=== PATIENT | female | born 1975 | race Caucasian/White ===

== ENCOUNTER 2021-12-10 05:35 | Emergency (ER) | payer MEDICAID ==
[~2021-12-10] VITALS: Ht 167.6 cm; Wt 94.8 kg
[2021-12-10 05:45] VITALS: BP_SYST 95
--- NOTE | 2021-12-10 05:50 | NUR ---
PT IS AA&OX4. AFEBRILE, NAD. VSS. PT HAS GENERALIZED BODY HIVES AND ITCHING. STATED SHE FEELS LIKE HAVING SOB. SAT 97% ON RA. PER PT SHE DOESN'T HAVE ANY ALLERGIES TO MEDS AND FOOD. PER PT, SHE'S CURRENTLY TAKING ACYCLOVIR JOSE SHE'S TAKEN IT IN THE PAST TOO. PER PT, SHE TOOK BENADRYL 25MG 2 HRS AGO.
[2021-12-10] MEDS ORDERED: DIPHENHYDRAMINE INJ 50 MG/ML VIAL IM ONE (06:00)
[2021-12-10] MEDS ORDERED: predniSONE 20 MG TABLET PO ONE (06:00)
[2021-12-10] MEDS ORDERED: TRIA80OI TP (06:16)
[2021-12-10] MEDS ORDERED: PRED20TA PO (06:16)
[2021-12-10] MEDS ORDERED: HYDR50TA61 PO (06:16)
--- NOTE | 2021-12-10 06:21 | NUR ---
Pt came to ER c/o body rash since saturday. pt states she thinks it could be from her home medication. pt has reddness all over bilateral arms, back, and stomach pt continues to scratch body. pt states she has been taking PO benadryl to calm hives down, but did not work denies SOB, denies tightness of throat. RN will continue to round on pt
--- NOTE | 2021-12-10 07:12 | NUR ---
gave report to PETER Ordaz endorsed pt in stable condition all questions answered
--- NOTE | 2021-12-10 07:20 | NUR ---
Patient given written and verbal discharge instructions and verbalizes understanding. ER Dr. Saqib MD discussed with patient the results and treatment provided. Patient in stable condition. ID arm band removed. IV catheter removed intact and dressing applied, no active bleeding. Rx of hydroxyzine, predinisone, triamcinolone given. Patient educated on pain management and to follow up with PMD. Pain Scale 0/10. Opportunity for questions provided and answered. Medication side effect fact sheet provided.
--- NOTE | 2021-12-10 07:20 | NUR ---
ER Dr. Saqib MD at bedside examining patient.
[2021-12-10 07:57] VITALS: BP_SYST 100
== END 2021-12-10 08:01 | disposition home or self-care (01) ==
LOC: SED 05:35
DX: R21 Rash and other nonspecific skin eruption (principal); Z79.899 Other long term (current) drug therapy
CPT/HCPCS: 99283; 96372; J7512; J1200

== ENCOUNTER 2021-12-12 08:58 | Emergency (ER) | payer MEDICAID ==
[~2021-12-12] VITALS: Ht 167.6 cm; Wt 95.3 kg
[~2021-12-12 08:58] MED LIST: HYDR50TA61 PO; PRED20TA PO; TRIA80OI TP
[2021-12-12 09:16] VITALS: BP_SYST 113
[2021-12-12 09:38] LABS: BASOPHILS # (AUTO) 0.1 K/uL (0.0-0.2); BASOPHILS % (AUTO) 0.6 % (0.0-2.0); EOSINOPHILS # (AUTO) 0.1 K/uL (0.0-0.4); EOSINOPHILS % (AUTO) 0.7 % (0.0-4.0); HEMATOCRIT 35.7 % (36-48); LYMPHOCYTES # (AUTO) 3.8 K/uL (1.0-5.5); LYMPHOCYTES % (AUTO) 34.4 % (20.5-51.5); MEAN CORPUSCULAR VOLUME 80 fL (79.0-98.0); MONOCYTES # (AUTO) 0.6 K/uL (0.0-1.0); MONOCYTES % (AUTO) 5.9 % (1.7-9.3); NEUTROPHILS # (AUTO) 6.4 K/uL (1.8-7.7); NEUTROPHILS % (AUTO) 58.4 % (40.0-70.0); PLATELET COUNT (AUTO) 323 K/uL (130-430); RED BLOOD CELL COUNT(AUTO) 4.45 MIL/uL (4.2-6.2); RED CELL DISTRIBUTION WIDTH 15.7 % (9.0-15.0); WHITE BLOOD COUNT (AUTO) 10.9 K/uL (4.8-10.8)
[2021-12-12 09:52] LABS: ANION GAP 6 (5-15); CALCIUM 8.2 mg/dL (8.4-11.0); CHLORIDE 106 mmol/L (98-107); GLUCOSE 95 mg/dL (70-99); POTASSIUM 3.4 mmol/L (3.5-5.1); UREA NITROGEN, BLOOD 10 mg/dL (8-21)
[2021-12-12 09:59] LABS: ALANINE AMINOTRANSFERASE 17 U/L (12-78); ALBUMIN 3.4 g/dL (3.4-4.8); ASPARTATE AMINOTRANSFERASE 16 U/L (10-37); TOTAL BILIRUBIN 0.3 mg/dL (0.0-1.0)
[2021-12-12 10:02] LABS: GFR AFRICAN AMERICAN 87 mL/min (>90)
[2021-12-12 10:07] LABS: PROTHROMBIN TIME 10.3 SECS (9.5-12.5)
[2021-12-12] MEDS ORDERED: iohexoL 350 mgI/mL, 100 ML INFUS..BTL IV ONE (11:15)
[2021-12-12] MEDS ORDERED: HYDR-3917 PO (12:41)
[2021-12-12] MEDS ORDERED: IBUP-1969 PO (12:41)
[2021-12-12 12:58] VITALS: BP_SYST 152
== END 2021-12-12 12:58 | disposition home or self-care (01) ==
LOC: SED 08:58
DX: 000.000 (principal); M54.6 Pain in thoracic spine; R00.2 Palpitations; Z79.899 Other long term (current) drug therapy
CPT/HCPCS: 80053; 85025; 85379; 85610; 85730; 84484; 36415; 93005; 71045; 71275; 76376; 99285; 81025; Q9967

== ENCOUNTER 2022-09-23 02:30 | Emergency (ER) | payer MEDICAID ==
[~2022-09-23] VITALS: Ht 167.6 cm; Wt 95.7 kg
[~2022-09-23 02:30] MED LIST changes: +HYDR-3917 PO; +IBUP-1969 PO
[2022-09-23 02:33] VITALS: BP_SYST 129; PULSE 65; RESP 20; TEMP 97.6; O2SAT 98
[2022-09-23 03:15] LABS: BASOPHILS # (AUTO) 0.1 K/uL (0.0-0.2); BASOPHILS % (AUTO) 1.3 % (0.0-2.0); EOSINOPHILS # (AUTO) 0.2 K/uL (0.0-0.4); HEMATOCRIT 38.8 % (36-48); HEMOGLOBIN 12.7 g/dL (12.0-16.0); LYMPHOCYTES # (AUTO) 2.8 K/uL (1.0-5.5); LYMPHOCYTES % (AUTO) 32.7 % (20.5-51.5); MEAN CORPUSCULAR HEMOGLOBIN 27 pg (27-31); MEAN CORPUSCULAR HGB CONC 33 % (32-36); MEAN CORPUSCULAR VOLUME 83 fL (79.0-98.0); MONOCYTES # (AUTO) 0.6 K/uL (0.0-1.0); MONOCYTES % (AUTO) 7.4 % (1.7-9.3); NEUTROPHILS # (AUTO) 4.8 K/uL (1.8-7.7); NEUTROPHILS % (AUTO) 56.6 % (40.0-70.0); PLATELET COUNT (AUTO) 348 K/uL (130-430); RED BLOOD CELL COUNT(AUTO) 4.68 MIL/uL (4.2-6.2); RED CELL DISTRIBUTION WIDTH 16.7 % (9.0-15.0); WHITE BLOOD COUNT (AUTO) 8.6 K/uL (4.8-10.8)
[2022-09-23] MEDS ORDERED: KETOROLAC TROMETHAMINE 15 MG VIAL IM ONE (03:15)
[2022-09-23 03:28] LABS: ANION GAP 10 (5-15); CALCIUM 8.5 mg/dL (8.4-11.0); CHLORIDE 105 mmol/L (98-107); CREATININE 0.67 mg/dL (0.55-1.30); GFR AFRICAN AMERICAN 122 mL/min (>90); GLUCOSE 105 mg/dL (74-106); UREA NITROGEN, BLOOD 9 mg/dL (8-21)
[2022-09-23 03:37] LABS: ALANINE AMINOTRANSFERASE 22 U/L (12-78); ALBUMIN 3.9 g/dL (3.4-4.8); ASPARTATE AMINOTRANSFERASE 13 U/L (10-37); TOTAL BILIRUBIN 0.2 mg/dL (0.0-1.0)
[2022-09-23] MEDS ORDERED: LORazepam 1 MG TABLET PO ONE (03:45)
[2022-09-23] MEDS ORDERED: IBUP-1969 PO (04:35)
[2022-09-23] MEDS ORDERED: LIDO700A30 TP (04:35)
[2022-09-23 04:47] VITALS: BP_SYST 123; PULSE 80; RESP 20; O2SAT 98
== END 2022-09-23 04:45 | disposition home or self-care (01) ==
LOC: SED 02:30
DX: R07.2 Precordial pain (principal); R06.02 Shortness of breath; Z79.899 Other long term (current) drug therapy
CPT/HCPCS: 99285; 71045; 80053; 83880; 85025; 85379; 84484; 36415; 93005; 81025; 96372; J1885